=== PATIENT | female | born 1990 | race African-American/Black ===

== ENCOUNTER 2020-11-04 22:33 | Emergency (ER) | payer SELFPAY ==
[~2020-11-04] VITALS: Ht 152.4 cm; Wt 67.6 kg
[2020-11-05] MEDS ORDERED: CEFTRIAXONE SOD 1 GM/50 ML BAG IV ONE
[2020-11-05] MEDS ORDERED: SODIUM CHLORIDE 0.9% 1000ML 1,000 ML IV SCH
[2020-11-05] MEDS ORDERED: AZITHROMYCIN 250 MG TAB PO ONE (03:15)
[2020-11-05] MEDS ORDERED: MACROBID 100 M100 MG PO (03:28)
[2020-11-05] MEDS ORDERED: AZITHROMYCIN 250 MG TAB ONE (03:35)
[2020-11-05 03:46] VITALS: BP 106/66
== END 2020-11-05 03:42 | disposition home or self-care (01) ==
LOC: FSED 11-05
DX: O23.42 Unspecified infection of urinary tract in pregnancy, second trimester (principal); N89.8 Other specified noninflammatory disorders of vagina; R10.30 Lower abdominal pain, unspecified
CPT/HCPCS: 76805; 80053; 81003; 81025; 85025; 87491; 87591; 99284; J0696; J7030